=== PATIENT | female | born 1960 | race African-American/Black ===

== ENCOUNTER 2024-04-18 08:54 | Emergency (ER) | payer MEDICARE, MEDICAID ==
[~2024-04-18] VITALS: Ht 167.6 cm; Wt 54.0 kg
[~2024-04-18 08:54] MED LIST: LEVO25TA7 PO
[2024-04-18 09:00] VITALS: O2SAT 100
[2024-04-18 09:41] LABS: EOSINOPHILS % 2.7 % (0.0-5.0); HEMATOCRIT. 29.7 % (36.0-48.0); HEMOGLOBIN. 9.2 g/dL (12.0-16.0); LYMPHOCYTES % 16.1 % (20.0-50.0); MEAN CORPUSCULAR HEMOGLOBIN 27.3 pg (28.0-32.0); MEAN CORPUSCULAR HGB CONC 30.8 g/dL (31.0-37.0); MEAN CORPUSCULAR VOLUME 88.5 fL (81.0-99.0); MEAN PLATELET VOLUME 7.9 fl (7.4-10.4); NEUTROPHILS % 74.2 % (40.0-76.0); PLATELET 366 x1000/uL (130-400); RED BLOOD CELL COUNT 3.35 mill/uL (4.2-5.4); RED CELL DISTRIBUTION WIDTH 18.4 % (11.6-14.6); WHITE BLOOD COUNT 6.3 x1000/uL (4.5-11.0)
[2024-04-18 09:54] LABS: CHLORIDE 102 mEq/L (98-107); POTASSIUM 4.4 mEq/L (3.5-5.1); SODIUM 137 mEq/L (136-145)
[2024-04-18 09:55] LABS: CALCIUM 8.5 mg/dL (8.7-10.4); CARBON DIOXIDE 29 mEq/L (21-32)
[2024-04-18 10:00] LABS: GLUCOSE 203 mg/dL (70-105); TROPONIN I HIGH SENSITIVITY 11 ng/L (3.0-34); UREA NITROGEN BLOOD 17 mg/dL (9-23)
[2024-04-18 10:02] LABS: ALANINE AMINOTRANSFERASE 23 IU/L (10-49); ALBUMIN 3.7 g/dL (3.2-4.8); ASPARTATE AMINOTRANSFERASE 62 IU/L (<34); BILIRUBIN DIRECT 0.1 mg/dL (<=3.0); BILIRUBIN TOTAL 0.4 mg/dL (0.1-1.0); PROTEIN TOTAL 7.7 g/dL (6.0-8.3)
[2024-04-18] MEDS: ONDANSETRON 4MG ODT PO STA (10:25)
[2024-04-18] MEDS: FAMOTIDINE 20MG TABLET PO ONE (10:25)
[2024-04-18] MEDS: MAGNESIUM/ALUMINUM HYDROXIDE/SIMETHICONE 30ML UDC PO STA (10:25)
[2024-04-18 13:06] LABS: TROPONIN I HIGH SENSITIVITY 11 ng/L (3.0-34)
[2024-04-18] MEDS: KETOROLAC 15MG/ML VIAL IV ONE (13:25)
[2024-04-18 13:26] VITALS: BP 100/54; PULSE 84; RESP 15; TEMP 36.55848; O2SAT 100
== END 2024-04-18 13:28 | disposition home or self-care (01) ==
LOC: ER 08:58
DX: R10.30 Lower abdominal pain, unspecified (principal); N28.9 Disorder of kidney and ureter, unspecified; E11.9 Type 2 diabetes mellitus without complications; I11.0 Hypertensive heart disease with heart failure; I50.9 Heart failure, unspecified; Z86.73 Personal history of transient ischemic attack (TIA), and cerebral infarction without residual deficits
CPT/HCPCS: 99285; 74176; 96374; 80076; 80048; 83690; 85025; 84484; 36415; Q0162; J1885